=== PATIENT | female | born 1940 | race Caucasian/White ===

== ENCOUNTER 2016-04-16 15:27 | Observation (INO) | payer MEDICARE, OTHER ==
--- NOTE | ~2016-04-16 | CN ---
Consultation Report [facility] [address] [place]. [address] NAME: RIMMA VELASQUEZ : 44 STATUS : ADM IN [facility]#: [id number] AGE: 75 ADM/REG DATE : 04/16/16 MR#: [id number] REPORT SERV DATE: 04/16/16 DICTATED BY: JUNIOR VENEGAS DATE: 04/16/16 REPORT STATUS : Draft TRANSCRIBED BY: MODL DATE: 04/16/16 CARDIOLOGY CONSULTATION DATE OF CONSULTATION: REASON FOR CONSULTATION: Atrial fibrillation. HISTORY OF PRESENT ILLNESS: Ms Velasquez is a very pleasant 75-year-old female whom we have been asked by the Hospitalist Service for management of atrial fibrillation with tachycardia. Her atrial fibrillation is a new diagnosis made today and she has been having symptoms since 04/11/2016. She reports intermittent palpitations with a sense of pressure in her chest over the last several days, noticeably worse today and prompting her to seek medical evaluation. Due to these symptoms, an EKG was performed and it demonstrated atrial fibrillation, a new diagnosis for the patient. She was admitted to the hospital directly. Her EKG has confirmed atrial fibrillation and telemetry has her at a heart rate of 150s. I am told by the staff that she briefly went into sinus rhythm shortly after arrival, but did not see documentation on this. Diltiazem drip has been ordered by the Hospitalist Service and this has just been started. Her heart rate is in the 130s and she feels uncomfortable. She has no history of cardiovascular disease, and specifically, no coronary heart disease, valvular heart disease, or stroke. She is on Synthroid for hypothyroidism. Medical record also is notable for osteoarthritis, peripheral neuropathy, and allergic rhinitis/urticaria. PAST SURGICAL HISTORY: Hysterectomy, BSO, and total thyroidectomy. FAMILY HISTORY: No premature CAD or heart rhythm disorders in first-degree relatives. SOCIAL HISTORY: The patient is . Her is at bedside. They live in [place], [place]. She does not smoke, use alcohol or illicit drugs. REVIEW OF SYSTEMS: Per HPI. Otherwise, negative. PHYSICAL EXAMINATION: VITAL SIGNS: Heart rate approximately 140, blood pressure 160/90, and respiratory rate 16. GENERAL: A well-developed female, in no apparent distress. HEENT: Sclerae are anicteric. Mucous members are moist. NECK: Supple. HEART: Rate is irregular and tachycardic. No murmurs are appreciated. PULMONARY: Clear to auscultation bilaterally. ABDOMEN: Soft, nondistended, and nontender. EXTREMITIES: Warm without edema. Consultation Report [facility] [address] [place]. [address] NAME: RIMMA VELASQUEZ : 44 STATUS : ADM IN PAT#: [id number] AGE: 75 ADM/REG DATE : 04/16/16 MR#: [id number] REPORT SERV DATE: 04/16/16 DICTATED BY: JUNIOR VENEGAS DATE: 04/16/16 REPORT STATUS : Draft TRANSCRIBED BY: ALEJA DATE: 04/16/16 LABS: WBC 7.1, hemoglobin 14.6, and platelets 190. Sodium 141, potassium 3.7, chloride 105, bicarb 28, BUN 8, creatinine 1.03, and magnesium 2.2. Troponin 0.03. TSH 1.15. Chest x- ray demonstrates no evidence of cardiomegaly, no signs of decompensated heart failure. IMPRESSIONS/RECOMMENDATIONS: 1. Atrial fibrillation, new diagnosis for this patient with no obvious risk factors other than her age. This alone makes her at elevated risk for thromboembolic event and warranting long-term anticoagulation. I briefly introduced this idea to the patient and she seems amenable. She is currently on IV heparin and we will continue this for now with plans to transition her to an oral anticoagulant tomorrow. She has been started on diltiazem. We will add beta-ruth as needed to achieve adequate rate control. I am hopeful that she will convert to sinus rhythm on her own, but if she does not, would consider DC cardioversion. With report of her having short periods of sinus rhythm, I suspect a trial of antiarrhythmic therapy would be in her benefit and I will start her on sotalol 80 mg q.12 while we are awaiting her transthoracic echo and eventually a stress test to see if she would be a candidate for 1C agent. Depending on her initial workup and clinical course, would consider an EP evaluation for consideration of alternative management strategies. Thank you for your consultation. We will follow. SHAHLA/ALEJA Junior Venegas MD / [id number] CC: Lucas Gonzalez Jr, MD Stanley Ireland, M.D.
--- NOTE | ~2016-04-16 | HP ---
History And Physical [facility] [address] [place]. [address] NAME: RIMMA NUR : 44 STATUS : ADM IN [facility]#: [id number] AGE: 75 ADM/REG DATE : 04/16/16 MR#: [id number] REPORT SERV DATE: 04/16/16 DICTATED BY: PIPER KRUSE DATE: 04/16/16 REPORT STATUS : Draft TRANSCRIBED BY: MODL DATE: 04/16/16 DATE OF ADMISSION: 04/16/2016 HISTORY OF PRESENT ILLNESS: The patient is an extremely pleasant 75-year-old female who presented to [facility] as a direct admission from Dr. Caio Sanchez's office because of new-onset atrial fibrillation with rapid ventricular response. The patient reported that she had one episode today and one episode also on Saturday. Both episodes happened after she finished her exercising, she goes to the gym and exercises, and basically, she felt chest discomfort on Saturday when she had this episode with atrial fibrillation with rapid ventricular response as well as she had a sensation of chest pressure behind the sternum several days ago and again today, but today was less chest discomfort than several days ago. The patient said that now she is chest pain-free and doing better. Her heart rate in the 150s to 160s. On initial presentation, her blood pressure was elevated today at 170/110 and now it is 140/70. She is now not having any chest pain. No shortness of breath. No fever. No rash. No headaches. No abdominal pain. No constipation. No diarrhea. REVIEW OF SYSTEMS: All 14-point review of systems done are negative except what is stated in the history of present illness. PAST MEDICAL HISTORY: Known for hypothyroidism, allergic rhinitis, arthritis, chronic anxiety, actinic keratosis, history of chronic gastritis, history of chronic gastroesophageal reflux disease, conjunctivitis, costochondritis, history of chronic dizziness, history of hypokalemia, history of fever, blisters, glossopharyngeal neuralgia, history of migraine headaches, history of hypokalemia, and itching. She is menopausal. She has history of muscle spasm, osteoarthritis, history of peripheral neuropathy, status post colonoscopy which only showed hemorrhoids, history of calf muscle strain, tenderness in the right calf, history of urticaria. PAST SURGICAL HISTORY: Includes hysterectomy; oophorectomy; history of thyroid surgery; total thyroidectomy, she cannot explain why she had it, but she said it was not definitely a cancer; and history of total abdominal hysterectomy with removal of both ovaries. FAMILY HISTORY: Mother had arthritis. Father had a history of lung cancer. SOCIAL HISTORY: The patient denies use of alcohol. She said that she drinks two cups of coffee a day. No recreational drugs. No smoking. No alcohol use. ALLERGIES: SHE IS ALLERGIC TO SULFA, CODEINE, DEPAKOTE, PREDNISONE, TEGRETOL, HYDROCHLOROTHIAZIDE, TRIAMTERENE, LAMISIL, TRAMADOL, NEURONTIN, NORTRIPTYLINE, CYCLOBENZAPRINE, TOPIRAMATE, CELECOXIB, LATEX, AND CARBATROL. HOME MEDICATIONS: Include vitamin C 500 mg twice a day, aspirin 81 mg daily, calcium with vitamin D b.i.d., vitamin D 1000 units daily, coenzyme Q 100 mg a day, estropipate 0.75 at bedtime, famotidine 40 mg twice a day, flaxseed oil one capsule daily, glucosamine History And Physical [address] [address] NAME: RIMMA NUR : 42 STATUS : ADM IN [facility]#: [id number] AGE: 75 ADM/REG DATE : 04/16/16 MR#: [id number] REPORT SERV DATE: 04/16/16 DICTATED BY: PIPER KRUSE DATE: 04/16/16 REPORT STATUS : Draft TRANSCRIBED BY: ALEJA DATE: 04/16/16 chondroitin daily, Xyzal 5 mg a day, levothyroxine 62.5 daily, magnesium oxide 400 daily, meclizine 12.5 daily p.r.n., multivitamins daily, [place]-3 fatty acids 1000 mg a day, propranolol 60 b.i.d., acyclovir in one tablet at bedtime and 1000 at noon. PHYSICAL EXAMINATION: GENERAL: A well-nourished, well-developed female, not in acute distress, resting quietly. VITAL SIGNS: Heart rate in 150s to 160, blood pressure 140/60, temperature 98.6, oxygen saturation 97% on room air, and respiratory rate 16. HEENT: Head atraumatic and normocephalic. Conjunctivae are clear. Pupils are equal and reactive to light and accommodation. Extraocular muscles are intact. NECK: Supple. Trachea is midline. No supraclavicular or cervical lymphadenopathy. LUNGS: Clear to auscultation bilaterally. Normal respiratory effort. CARDIOVASCULAR SYSTEM: Irregular rate and rhythm. Point of maximal impulse not displaced. ABDOMEN: Soft, nontender, and nondistended. Positive normoactive bowel sounds. EXTREMITIES: No clubbing or cyanosis. No edema. SKIN: Normal color and turgor. PSYCHIATRIC: Normal mood and affect. LABORATORY RESULTS: Sodium 141, potassium 3.7, chloride 105, carbon dioxide 28, BUN 8, creatinine 1.03. Blood sugar is 99. Troponin less than 0.03. TSH 1.15. CBC showed white count is 7.1, hemoglobin 14.6, hematocrit 42.7, and platelet count 190. PT 13.2 and INR is 1. She also had a chest x-ray which was done today, which did not show any acute abnormality, personally reviewed by me, but we will wait also for official Radiology report. ASSESSMENT AND PLAN: 1. This is a very pleasant 75-year-old female with chronic medical problems listed above who presented with new-onset atrial fibrillation with rapid ventricular response, both episodes started after exercise, both times. Right now, her heart rate is in the 150s to 160s. She was started on Cardizem drip per protocol as well as she was started on heparin drip to decrease the risk of stroke. 2. Her potassium level is in normal range as well as magnesium level currently is pending. I consulted sports writer for this patient and Dr. Venegas is here as well, and also we will check her echocardiogram. Most likely, it is exercise-induced atrial fibrillation with rapid ventricular response as well as the patient was told excessive coffee use can increase the risk of atrial fibrillation. 3. Her hypothyroidism is controlled. 4. Chest discomfort started every time when she was having these episodes. We will check her serial troponins and echocardiogram and my partner will see her as well as the sports writer will see this patient. The patient discussed with Dr. Venegas. MG/MODL History And Physical [address] [address] NAME: RIMMA NUR : 44 STATUS : ADM IN [facility]#: [id number] AGE: 75 ADM/REG DATE : 04/16/16 MR#: [id number] REPORT SERV DATE: 04/16/16 DICTATED BY: PIEPR KRUSE DATE: 04/16/16 REPORT STATUS : Draft TRANSCRIBED BY: ALEJA DATE: 04/16/16 Piper Kruse M.D. / [id number] CC: Lucas Gonzalez Jr, MD Stanley Ireland, M.D.
--- NOTE | ~2016-04-16 | DS ---
Discharge Summary [facility] [address] [place]. [address] NAME: RIMMA NUR : 44 STATUS : DIS Dalila PAT#: [id number] AGE: 75 ADM/REG DATE : 04/16/16 MR#: [id number] REPORT SERV DATE: 04/18/16 DICTATED BY: MING BELTRAN DATE: 04/17/16 REPORT STATUS : Draft TRANSCRIBED BY: MODTheresa DATE: 04/17/16 ADMISSION DATE: 04/16/2016 DISCHARGE DATE: 04/17/2016 PROCEDURES DONE: 1. On 04/16/2016 chest x-ray: No acute cardiopulmonary abnormality. 2. On 04/17/2016 2D echo: Normal left ventricular systolic function with calculated EF of 55% to 60%. Normal right ventricular chamber size and systolic function. Moderate tricuspid and mild pulmonary valvular regurgitation. CONSULTATION: Junior Venegas M.D. for Cardiology. REASON FOR ADMISSION: New onset atrial fibrillation with RVR. HISTORY OF PRESENT ILLNESS: This is a 75-year-old white female with past medical history of hypothyroidism, anxiety, arthritis, presenting with atrial fibrillation with RVR. The patient apparently was in Dr. Sanchez's office secondary to new set of AFib with RVR. The patient was admitted for further evaluation of AFib with RVR. Initially was started on Cardizem drip per protocol as well as heparin for anticoagulation. Cardiology was consulted and subsequently the patient was supposed to undergo a cardioversion. The patient converted on her own with medication. Cardiology put the patient on sotalol which converted the patient to normal sinus rhythm. In addition, the patient has been started on Eliquis 5 mg p.o. b.i.d. for anticoagulation. DISPOSITION: The patient is feeling fine, no complaints. ACTIVITY: As tolerated. DIET: Regular. INSTRUCTIONS UPON DISCHARGE: 1. The patient is to follow up with Dr. Venegas within three to four weeks' time. 2. The patient to follow up primary care within two weeks' time. MEDICATIONS UPON DISCHARGE: 1. Eliquis 5 mg p.o. daily. 2. Aspirin 81 mg daily. 3. Calcium with vitamin D one tablet p.o. at lunch and supper. 4. Vitamin D3 2000 units p.o. daily. 5. Coenzyme Q 100 mg p.o. daily. 6. Estropipate 0.75 mg p.o. daily. 7. Pepcid 40 mg p.o. b.i.d. 8. Glucosamine chondroitin one tab p.o. daily. 9. Levothyroxine 62.5 mcg p.o. daily. 10.Xyzal 5 mg p.o. q.h.s. 11.Magnesium 400 mg p.o. q.h.s. Discharge Summary [facility] [address] [place]. [address] NAME: RIMMA NUR : 44 STATUS : DIS Dalila PAT#: [id number] AGE: 75 ADM/REG DATE : 04/16/16 MR#: [id number] REPORT SERV DATE: 04/18/16 DICTATED BY: MING BELTRAN DATE: 04/17/16 REPORT STATUS : Draft TRANSCRIBED BY: ALEJA DATE: 04/17/16 12.Multivitamin one tablet daily. 13.[place]-3, 1000 mg p.o. daily. 14.Valtrex 100 mg p.o. daily. 15.Meclizine 12.5 mg p.o. daily p.r.n. 16.Flaxseed one capsule p.o. every other day. 17.Vitamin C 500 mg p.o. b.i.d. 18.Valacyclovir ointment 5% topical q.h.s. DIAGNOSES UPON DISCHARGE: 1. Atrial fibrillation with rapid ventricular response rate control. 2. Hypothyroidism. 3. Arthritis. CAITLIN/ALEJA Ming Beltran MD / [id number] CC: MD Caio Whitley M.D.
[~2016-04-16 15:27] MED LIST: ACIDOPHILU1 PO; ALOE VERA LIQUID PO; ASAB PO; ASTELIN NAS; BL FLAX SEED1000 MG PO; CO Q-10100 MG PO; DEMA20 PO; ECHINACEA125 MG PO; ESTROPIPATE0.75 MG PO; FISH-EPA1000 MG PO; GLUCOSAMINEPO PO; INDE60 PO; KLOR-CON 1010 MEQ PO; LEVOTHROID125 MCG PO; MAGOX4 PO; MCZ125 PO; MULTI-VIT HP PO; V5 PO; VIACTIV PO; VITAMIN D31000 UNIT PO; VITC500 PO; XYZAL5 MG PO; ZANTAC300 MG PO; [UNRECOGNIZED DRUG - SUPPLY] NAS
[2016-04-16] MEDS ORDERED: GLUCCHONDR PO (16:03)
[2016-04-16 16:04] LABS: BASOPHILS 0.1 %; BASOPHILS ABSOLUTE 0.01 10/3/uL (0.0-0.16); EOSINOPHILS 0.6 %; EOSINOPHILS ABSOLUTE 0.04 10/3/uL (0.0-0.53); HEMATOCRIT 42.7 % (36.0-48.0); HEMOGLOBIN 14.6 g/dL (12.0-16.0); IMMATURE GRANULOCYTES 0.1 %; IMMATURE GRANULOCYTES ABSOLUTE 0.01 10/3/uL (0.0-0.11); LYMPHOCYTES 35.8 %; LYMPHOCYTES ABSOLUTE 2.54 10/3/uL (0.67-4.30); MANUAL DIFF NO %; MEAN CORPUS HGB CONC 34.2 g/dL (32.0-36.0); MEAN CORPUSCULAR HEMOGLOB 31.7 pg (26.0-34.0); MEAN CORPUSCULAR VOLUME 92.8 fL (80-100); MEAN PLATELET VOLUME 12.5 fL (9.2-13.0); MONOCYTES 8.6 %; MONOCYTES ABSOLUTE 0.61 10/3/uL (0.21-1.20); NEUTROPHILS 54.8 %; NEUTROPHILS ABSOLUTE 3.88 10/3/uL (2.02-8.40); PLATELET COUNT 190 10/3/uL (150-400); WHITE BLOOD CELLS 7.1 10/3/uL (4.5-10.5)
[2016-04-16] MEDS ORDERED: EFUDEX CREAM 5%40 GM TOP (16:06)
[2016-04-16] MEDS ORDERED: VALTREX5 PO (16:07)
[2016-04-16] MEDS ORDERED: PEPCID40 MG PO (16:07)
[2016-04-16 16:10] LABS: PARTIAL THROMBO TIME 27.6 SEC (22.5-37.2); PROTIME (NOT ORD) 13.2 SEC (12.0-14.5)
[2016-04-16 16:27] LABS: BUN (BLOOD UREA NITROGEN) 8 MG/DL (6-23); CALCIUM, SERUM 8.9 MG/DL (8.5-10.4); CHLORIDE, SERUM 105 MMOL/L (96-112); CO2 (CARBON DIOXIDE) 28 MMOL/L (24-34); CREATININE 1.03 MG/DL (0.55-1.02); GFR AFRICAN AMERICAN 62 ML/MIN (>=60); GFR NON AFRICAN AMERICAN 54 ML/MIN (>=60); GLUCOSE, SERUM 99 MG/DL (60-99); POTASSIUM, SERUM 3.7 MMOL/L (3.5-5.3); SODIUM, SERUM 141 MMOL/L (135-148); TROPONIN I 0.03 NG/ML (<0.05)
[2016-04-17 02:46] LABS: HEMATOCRIT 39.9 % (36.0-48.0); HEMOGLOBIN 13.6 g/dL (12.0-16.0); MEAN CORPUS HGB CONC 34.1 g/dL (32.0-36.0); MEAN CORPUSCULAR HEMOGLOB 32.7 pg (26.0-34.0); PLATELET COUNT 166 10/3/uL (150-400); RED CELL COUNT 4.16 10/6/uL (4.0-5.6); WHITE BLOOD CELLS 6.3 10/3/uL (4.5-10.5)
[2016-04-17 02:49] LABS: MANUAL DIFF YES %; MEAN CORPUSCULAR VOLUME 95.9 fL (80-100)
[2016-04-17 02:57] LABS: BUN (BLOOD UREA NITROGEN) 7 MG/DL (6-23); CALCIUM, SERUM 8.3 MG/DL (8.5-10.4); CHLORIDE, SERUM 109 MMOL/L (96-112); CO2 (CARBON DIOXIDE) 25 MMOL/L (24-34); CREATININE 0.84 MG/DL (0.55-1.02); GFR AFRICAN AMERICAN 80 ML/MIN (>=60); GFR NON AFRICAN AMERICAN 69 ML/MIN (>=60); GLUCOSE, SERUM 102 MG/DL (60-99); POTASSIUM, SERUM 3.9 MMOL/L (3.5-5.3); SODIUM, SERUM 144 MMOL/L (135-148)
[2016-04-17 03:05] LABS: LYMPHOCYTES 45 %; LYMPHOCYTES ABSOLUTE (CALC) 2.84 10/3/uL (0.67-4.30); MONOCYTES 12 %; MONOCYTES ABSOLUTE (CALC) 0.76 10/3/uL (0.21-1.20); NEUTROPHILS ABSOLUTE (CALC) 2.71 10/3/uL (2.02-8.40); PLATELET ESTIMATE ADQ (ADEQUATE); RBC MORPHOLOGY NORM (NORMAL); SEGMENTED NEUTROPHIL (0) 43 %; TOTAL NUCLEATED CELLS 100
[2016-04-17] MEDS ORDERED: ELIQUIS 5 MG TAB5 MG PO (17:34)
[2016-04-17] MEDS ORDERED: BETAPACE80 PO (17:38)
[2016-04-17] MEDS ORDERED: CARDCD120 PO (18:00)
[2016-06-19] MEDS ORDERED: DITRO5 PO (08:44)
[2016-06-19] MEDS ORDERED: VITC500 PO (08:45)
[2016-06-20] MEDS ORDERED: FLECAINIDE50 MG PO (09:35)
== END 2016-04-17 18:50 | disposition home or self-care (01) ==
LOC: SSU1 15:27
PROVIDERS: Internal Medicine
DX: I48.91 Unspecified atrial fibrillation (principal); E03.9 Hypothyroidism, unspecified; M19.90 Unspecified osteoarthritis, unspecified site; F41.9 Anxiety disorder, unspecified; K21.9 Gastro-esophageal reflux disease without esophagitis; E87.6 Hypokalemia; G43.909 Migraine, unspecified, not intractable, without status migrainosus; Z90.710 Acquired absence of both cervix and uterus; Z90.89 Acquired absence of other organs; Z88.2 Allergy status to sulfonamides; Z88.5 Allergy status to narcotic agent; Z91.040 Latex allergy status; Z88.8 Allergy status to other drugs, medicaments and biological substances; Z79.82 Long term (current) use of aspirin; Z79.899 Other long term (current) drug therapy
CPT/HCPCS: 71010; 80048; 83036; 83735; 84443; 84484; 85025; 85610; 85730; 93005; 93306; 96374; 96376; A9270-GY; G0378

== ENCOUNTER 2016-05-20 05:43 | Emergency (ER) | payer MEDICARE, OTHER ==
[2016-05-20 05:09] LABS: BASOPHILS 0.2 %; BASOPHILS ABSOLUTE 0.01 10/3/uL (0.0-0.16); EOSINOPHILS ABSOLUTE 0.11 10/3/uL (0.0-0.53); HEMATOCRIT 40.2 % (36.0-48.0); IMMATURE GRANULOCYTES 0.2 %; IMMATURE GRANULOCYTES ABSOLUTE 0.01 10/3/uL (0.0-0.11); LYMPHOCYTES 38.5 %; LYMPHOCYTES ABSOLUTE 2.11 10/3/uL (0.67-4.30); MEAN CORPUS HGB CONC 34.8 g/dL (32.0-36.0); MEAN CORPUSCULAR HEMOGLOB 32.6 pg (26.0-34.0); MEAN CORPUSCULAR VOLUME 93.5 fL (80-100); MEAN PLATELET VOLUME 12.2 fL (9.2-13.0); MONOCYTES 9.9 %; MONOCYTES ABSOLUTE 0.54 10/3/uL (0.21-1.20); NEUTROPHILS 49.2 %; PLATELET COUNT 170 10/3/uL (150-400); RBC DISTRIBUTION WIDTH 13.1 % (12.0-16.0); WHITE BLOOD CELLS 5.5 10/3/uL (4.5-10.5)
[2016-05-20 05:10] LABS: MANUAL DIFF NO %
[2016-05-20 05:15] LABS: INTERNATIONAL NORMAL RATI 1.1 UNITS (-); PROTIME (NOT ORD) 13.9 SEC (12.0-14.5)
[2016-05-20 05:16] LABS: PARTIAL THROMBO TIME 32.7 SEC (22.5-37.2)
[2016-05-20 05:29] LABS: BUN (BLOOD UREA NITROGEN) 6 MG/DL (6-23); CALCIUM, SERUM 8.9 MG/DL (8.5-10.4); CHEST PAIN PROFILE TAT 0 Hrs 26 Mins; CHLORIDE, SERUM 111 MMOL/L (96-112); CO2 (CARBON DIOXIDE) 26 MMOL/L (24-34); CREATININE 0.92 MG/DL (0.55-1.02); GFR AFRICAN AMERICAN 72 ML/MIN (>=60); GFR NON AFRICAN AMERICAN 62 ML/MIN (>=60); GLUCOSE, SERUM 104 MG/DL (60-99); POTASSIUM, SERUM 3.9 MMOL/L (3.5-5.3); SODIUM, SERUM 146 MMOL/L (135-148); TROPONIN I <0.02 NG/ML (<0.05)
[~2016-05-20 05:43] MED LIST changes: +BETAPACE80 PO; +CARDCD120 PO; +EFUDEX CREAM 5%40 GM TOP; +ELIQUIS 5 MG TAB5 MG PO; +GLUCCHONDR PO; +PEPCID40 MG PO; +VALTREX5 PO
[2016-06-19] MEDS ORDERED: DITRO5 PO (08:44)
[2016-06-19] MEDS ORDERED: VITC500 PO (08:45)
[2016-06-20] MEDS ORDERED: FLECAINIDE50 MG PO (09:35)
== END 2016-05-20 06:16 | disposition home or self-care (01) ==
LOC: ER 05:43
PROVIDERS: Specialist
DX: I48.0 Paroxysmal atrial fibrillation (principal); Z85.820 Personal history of malignant melanoma of skin; Z88.2 Allergy status to sulfonamides; Z88.5 Allergy status to narcotic agent; Z88.8 Allergy status to other drugs, medicaments and biological substances; Z91.040 Latex allergy status; Z79.899 Other long term (current) drug therapy; Z79.82 Long term (current) use of aspirin
CPT/HCPCS: 71010; 80048; 83735; 84484; 85025; 85610; 85730; 93005; 99285

== ENCOUNTER 2016-07-07 20:42 | Emergency (ER) | payer MEDICARE, OTHER ==
[~2016-07-07 20:42] MED LIST changes: +DITRO5 PO; +FLECAINIDE50 MG PO
[2016-07-07 21:02] LABS: BASOPHILS 0.2 %; BASOPHILS ABSOLUTE 0.01 10/3/uL (0.0-0.16); EOSINOPHILS 0.9 %; EOSINOPHILS ABSOLUTE 0.06 10/3/uL (0.0-0.53); ER CBC TAT 0 Hrs 05 Mins; HEMATOCRIT 40.8 % (36.0-48.0); HEMOGLOBIN 14.1 g/dL (12.0-16.0); IMMATURE GRANULOCYTES 0.2 %; IMMATURE GRANULOCYTES ABSOLUTE 0.01 10/3/uL (0.0-0.11); LYMPHOCYTES 43.6 %; LYMPHOCYTES ABSOLUTE 2.83 10/3/uL (0.67-4.30); MEAN CORPUS HGB CONC 34.6 g/dL (32.0-36.0); MEAN CORPUSCULAR HEMOGLOB 31.8 pg (26.0-34.0); MEAN CORPUSCULAR VOLUME 91.9 fL (80-100); MEAN PLATELET VOLUME 11.2 fL (9.2-13.0); MONOCYTES 9.6 %; MONOCYTES ABSOLUTE 0.62 10/3/uL (0.21-1.20); NEUTROPHILS 45.5 %; NEUTROPHILS ABSOLUTE 2.96 10/3/uL (2.02-8.40); PLATELET COUNT 191 10/3/uL (150-400); RBC DISTRIBUTION WIDTH 13.4 % (12.0-16.0); RED CELL COUNT 4.44 10/6/uL (4.0-5.6); WHITE BLOOD CELLS 6.5 10/3/uL (4.5-10.5)
[2016-07-07 21:03] LABS: MANUAL DIFF NO %
[2016-07-07 21:09] LABS: INTERNATIONAL NORMAL RATI 1.2 UNITS (-); PARTIAL THROMBO TIME 34.4 SEC (22.5-37.2); PROTIME (NOT ORD) 15.5 SEC (12.0-14.5)
[2016-07-07 21:19] LABS: BUN (BLOOD UREA NITROGEN) 7 MG/DL (6-23); CHEST PAIN PROFILE TAT 0 Hrs 22 Mins; CHLORIDE, SERUM 108 MMOL/L (96-112); CO2 (CARBON DIOXIDE) 27 MMOL/L (24-34); CREATININE 0.94 MG/DL (0.55-1.02); GFR AFRICAN AMERICAN 70 ML/MIN (>=60); GFR NON AFRICAN AMERICAN 60 ML/MIN (>=60); GLUCOSE, SERUM 94 MG/DL (60-99); SODIUM, SERUM 141 MMOL/L (135-148); TROPONIN I <0.02 NG/ML (<0.05)
== END 2016-07-08 00:12 | disposition home or self-care (01) ==
LOC: ER 20:42
PROVIDERS: Emergency Medicine
DX: R07.9 Chest pain, unspecified (principal); I48.91 Unspecified atrial fibrillation; Z88.2 Allergy status to sulfonamides; Z88.5 Allergy status to narcotic agent; Z88.6 Allergy status to analgesic agent; Z88.8 Allergy status to other drugs, medicaments and biological substances; Z91.040 Latex allergy status; Z79.899 Other long term (current) drug therapy
CPT/HCPCS: 71020; 80048; 83735; 84484; 85025; 85610; 85730; 93005; 99285

== ENCOUNTER 2016-07-25 05:14 | Observation (INO) | payer MEDICARE, OTHER ==
--- NOTE | ~2016-07-25 | TEE ---
Transesophageal Echocardiogram [facility] [address] [facility] [place]. [address] NAME: MARY NUR : 44 STATUS : DIS Dalila PAT#: [id number] AGE: 75 ADM/REG DATE : 07/25/16 MR#: [id number] REPORT SERV DATE: 08/30/16 DICTATED BY: ISAAC BARNETT DATE: 07/25/16 REPORT STATUS : Draft TRANSCRIBED BY: ALEJA DATE: 07/25/16 REPORT TITLE: TRANSESOPHAGEAL ECHOCARDIOGRAM INDICATION: Ms. Mary David is scheduled for ablation and a WILFRED is obtained prior to rule out left atrial thrombus. PROCEDURE IN DETAIL: Informed consent was obtained and all questions were answered. Anesthesia was administered, and when the appropriate level of anesthesia was reached, the probe was passed without difficulty. RESULTS: 1. Left ventricular and right ventricular chambers were normal in size. Left ventricular contractility was intact, estimated at 58%. Right ventricular contractility was intact. 2. Left and right atria were normal in size. Left atrial appendage was free of thrombus. 3. Aortic valve was trileaflet and opened normally. Mitral valve and tricuspid valves were thin, pliable, and opened normally. Pulmonic valve was opened normally. COLOR-FLOW: There was noted to be moderate tricuspid regurgitation. There is also noted trace pulmonic regurgitation. DOPPLER: Doppler interrogation of left atrial appendages showed velocities greater than 40. CONCLUSION: NO EVIDENCE OF LEFT ATRIAL THROMBUS WAS FOUND. THESE RESULTS WERE PASSED TO DR. ROMAN. JEMAL/ALEJA Isaac Barnett M.D. / [id number] CC: MD Caio Whitley M.D.
[2016-07-25 05:58] LABS: BASOPHILS 0.4 %; BASOPHILS ABSOLUTE 0.02 10/3/uL (0.0-0.16); EOSINOPHILS ABSOLUTE 0.05 10/3/uL (0.0-0.53); HEMATOCRIT 40.9 % (36.0-48.0); HEMOGLOBIN 13.9 g/dL (12.0-16.0); IMMATURE GRANULOCYTES 0.2 %; IMMATURE GRANULOCYTES ABSOLUTE 0.01 10/3/uL (0.0-0.11); LYMPHOCYTES 37.1 %; LYMPHOCYTES ABSOLUTE 1.81 10/3/uL (0.67-4.30); MANUAL DIFF NO %; MEAN CORPUSCULAR HEMOGLOB 31.3 pg (26.0-34.0); MEAN CORPUSCULAR VOLUME 92.1 fL (80-100); MEAN PLATELET VOLUME 11.7 fL (9.2-13.0); MONOCYTES 10.7 %; MONOCYTES ABSOLUTE 0.52 10/3/uL (0.21-1.20); NEUTROPHILS 50.6 %; NEUTROPHILS ABSOLUTE 2.47 10/3/uL (2.02-8.40); PLATELET COUNT 178 10/3/uL (150-400); RBC DISTRIBUTION WIDTH 13.6 % (12.0-16.0); RED CELL COUNT 4.44 10/6/uL (4.0-5.6); WHITE BLOOD CELLS 4.9 10/3/uL (4.5-10.5)
[2016-07-25 06:10] LABS: BUN (BLOOD UREA NITROGEN) 5 MG/DL (6-23); CHLORIDE, SERUM 110 MMOL/L (96-112); CO2 (CARBON DIOXIDE) 27 MMOL/L (24-34); CREATININE 1.01 MG/DL (0.55-1.02); GFR AFRICAN AMERICAN 64 ML/MIN (>=60); GFR NON AFRICAN AMERICAN 55 ML/MIN (>=60); GLUCOSE, SERUM 87 MG/DL (60-99); POTASSIUM, SERUM 4.1 MMOL/L (3.5-5.3); SODIUM, SERUM 144 MMOL/L (135-148)
== END 2016-07-26 14:33 | disposition home or self-care (01) ==
LOC: CORLMH 05:14 → SSU1 05:19
PROVIDERS: Internal Medicine Cardiovascular Disease
PROC: 02583ZZ Destruction of Conduction Mechanism, Percutaneous Approach (ICD-10-PCS; principal; 2016-07-25)
PROC: 02K83ZZ Map Conduction Mechanism, Percutaneous Approach (ICD-10-PCS; 2016-07-25)
DX: I48.0 Paroxysmal atrial fibrillation (principal); E03.9 Hypothyroidism, unspecified; F41.9 Anxiety disorder, unspecified; K21.9 Gastro-esophageal reflux disease without esophagitis; K44.9 Diaphragmatic hernia without obstruction or gangrene; K52.9 Noninfective gastroenteritis and colitis, unspecified; K64.9 Unspecified hemorrhoids; M19.90 Unspecified osteoarthritis, unspecified site; Z86.73 Personal history of transient ischemic attack (TIA), and cerebral infarction without residual deficits; Z88.5 Allergy status to narcotic agent; Z88.8 Allergy status to other drugs, medicaments and biological substances; Z88.2 Allergy status to sulfonamides; Z88.6 Allergy status to analgesic agent; Z79.01 Long term (current) use of anticoagulants; Z79.899 Other long term (current) drug therapy; Z96.1 Presence of intraocular lens; Z98.41 Cataract extraction status, right eye; Z98.42 Cataract extraction status, left eye; Z90.49 Acquired absence of other specified parts of digestive tract; Z90.710 Acquired absence of both cervix and uterus; Z90.89 Acquired absence of other organs; Z98.890 Other specified postprocedural states
CPT/HCPCS: 80048; 82962; 85025; 85347; 93005; 93312; 93320; 93325; 93613; 93656; 93662; 96374; 96375; A9270-GY; C1732; C1759; C1769; C1781; C1894; G0378; J2405; J2710; J2720; J3010; Q9967